=== PATIENT | male | born 1965 | race Two or more races ===

== ENCOUNTER 2016-11-03 15:58 | Emergency (ER) | payer OTHER ==
[~2016-11-03] VITALS: Ht 175.3 cm; Wt 73.3 kg
[2016-11-03 15:59] VITALS: BP 112/75
== END 2016-11-03 17:14 | disposition home or self-care (01) ==
LOC: ED 16:39
DX: S63.652A Sprain of metacarpophalangeal joint of right middle finger, initial encounter (principal); X50.1XXA Overexertion from prolonged static or awkward postures, initial encounter; Y93.89 Activity, other specified; Y92.89 Other specified places as the place of occurrence of the external cause; Y99.8 Other external cause status
CPT/HCPCS: 99284

== ENCOUNTER 2020-06-24 11:37 | Emergency (ER) | payer MEDICAID, OTHER ==
[~2020-06-24] VITALS: Ht 175.3 cm; Wt 81.6 kg
[2020-06-24 11:39] VITALS: BP 112/92
--- NOTE | 2020-06-24 12:03 | NUR ---
PT IS A 54M WITH COMPLAINTS OF RIGHT 2ND TOE PAIN. DENIES TRAUMA. PROVIDER AT BEDSIDE FOR EVAL AND POC. CALL LIGHT WITHIN REACH.
== END 2020-06-24 12:53 | disposition home or self-care (01) ==
LOC: ED 11:59
DX: M20.11 Hallux valgus (acquired), right foot (principal); M21.611 Bunion of right foot
CPT/HCPCS: 99283